=== PATIENT | male | born 1945 | race Caucasian/White ===

== ENCOUNTER → 2018-02-28 | Outpatient (CLI) | payer SELFPAY ==
[2018-02-28 15:36] LABS: BASO # 0.1 (0.0-0.2); EOS # 0.3 (0.0-0.7); EOS % 3.6 % (0-4.0); GRAN # 3.3 (1.4-6.5); GRAN % 48.1 % (42.2-75.2); HEMATOCRIT 46.8 % (42.0-52.0); HEMOGLOBIN 15.3 g/dl (13.5-18.0); LYMPH # 2.5 (1.2-3.4); LYMPH % 36.1 % (20.0-51.0); MEAN CELL VOLUME 96 fl (80.0-100.0); MEAN CORPUSCULAR HEMOGLOBIN 31 pg (27.0-31.0); MEAN CORPUSCULAR HGB CONC 33 g/dl (33.0-37.0); MEAN PLATELET VOLUME 10.4 fl (7.4-10.4); MONO # 0.8 (0.1-0.6); MONO % 10.8 % (1.7-9.3); PLATELET COUNT 205 K/mm3 (130-400); RED BLOOD COUNT 4.89 M/mm3 (4.20-5.60); REDCELL DISTRIBUTION WIDTH-CV 13.2 % (11.5-14.5)
[2018-02-28 15:46] LABS: ALBUMIN 4.5 gm/dL (3.5-5.0); BILIRUBIN,TOTAL 0.6 mg/dL (0.0-1.0); CALCIUM 10.3 mg/dL (8.4-10.2); CHOLESTEROL RISK RATIO 4.7; CREATININE, serum 1.05 mg/dL (0.66-1.25); POTASSIUM 4.1 mmol/L (3.4-5.0); TOTAL PROTEIN 7.2 gm/dL (6.4-8.2)
== END ==
LOC: ZLAB.FHCC 15:15
PROVIDERS: Internal Medicine
DX: I10 Essential (primary) hypertension (principal); J44.9 Chronic obstructive pulmonary disease, unspecified

== ENCOUNTER → 2018-12-27 | Outpatient (CLI) | payer SELFPAY ==
[2018-12-27 12:25] LABS: BASO # 0.1 (0.0-0.2); BASO % 0.9 % (0.0-2.0); EOS # 0.3 (0.0-0.7); EOS % 4.1 % (0-4.0); GRAN # 4.6 (1.4-6.5); GRAN % 60.1 % (42.2-75.2); HEMATOCRIT 42.1 % (42.0-52.0); HEMOGLOBIN 13.8 g/dl (13.5-18.0); LYMPH # 2.2 (1.2-3.4); LYMPH % 29.1 % (20.0-51.0); MEAN CELL VOLUME 97 fl (80.0-100.0); MEAN CORPUSCULAR HEMOGLOBIN 32 pg (27.0-31.0); MEAN CORPUSCULAR HGB CONC 33 g/dl (33.0-37.0); MEAN PLATELET VOLUME 10.3 fl (7.4-10.4); MONO # 0.4 (0.1-0.6); MONO % 5.1 % (1.7-9.3); PLATELET COUNT 235 K/mm3 (130-400); RED BLOOD COUNT 4.35 M/mm3 (4.20-5.60); REDCELL DISTRIBUTION WIDTH-CV 13.3 % (11.5-14.5)
[2018-12-27 12:37] LABS: CHOLESTEROL RISK RATIO 5.9
[2018-12-27 12:40] LABS: ALBUMIN 4.3 gm/dL (3.5-5.0); BILIRUBIN,TOTAL 0.5 mg/dL (0.0-1.0); CALCIUM 10.5 mg/dL (8.4-10.2); CREATININE, serum 0.9 (0.66-1.25); POTASSIUM 4.1 mmol/L (3.4-5.0); TOTAL PROTEIN 6.9 gm/dL (6.4-8.2)
[2018-12-27 13:10] LABS: PSA-TOTAL 1.27 ng/mL (0-4)
== END ==
LOC: ZCOL.LAB 10:48
DX: I10 Essential (primary) hypertension (principal); J44.9 Chronic obstructive pulmonary disease, unspecified
CPT/HCPCS: G0103

== ENCOUNTER → 2019-04-04 | Outpatient (CLI) | payer MEDICARE | LOC: COL.RAD 07:10 | DX: I71.4 Abdominal aortic aneurysm, without rupture (principal) ==

== ENCOUNTER → 2019-05-07 | Outpatient (CLI) | payer MEDICARE | LOC: COL.RAD 07:16 | DX: N28.1 Cyst of kidney, acquired (principal); N28.89 Other specified disorders of kidney and ureter; N40.0 Benign prostatic hyperplasia without lower urinary tract symptoms; I71.9 Aortic aneurysm of unspecified site, without rupture | CPT/HCPCS: Q9967 ==

== ENCOUNTER 2019-07-31 09:16 | Inpatient (IN) | payer MEDICARE ==
[~2019-07-31] VITALS: Ht 177.8 cm; Wt 91.2 kg
[2019-09-11] VITALS (12 sets, daily range): BP systolic 120–148; BP diastolic 65–90; PULSE 78–96; TEMP 97.3–98.4
[2019-09-11] MEDS ORDERED: ASPIRIN 81M81 MG/TA2 PO (09:54)
[2019-09-11] MEDS ORDERED: PRINZIDE 12.5 M1 TA1 PO (09:55)
[2019-09-11] MEDS ORDERED: MEVACOR 20M20 MG/TAB PO (09:55)
[2019-09-11] MEDS ORDERED: VENTOLIN0.09 MG IH (09:56)
[2019-09-11] MEDS ORDERED: TRELEGY ELLIPT1 EACH IH (09:57)
--- NOTE | 2019-09-11 14:25 | NUR ---
Patient to room via bed from surgery. Denies pain at this time. Rosenbaum to dependent drainage draining bloody urine. Lap sites x6 to abd with edges well approximated, no redness/swelling/discharge. JAI drain to right abd, compressed, scant bloody drainage. Patient voices no needs at this time.
--- NOTE | 2019-09-11 15:17 | NUR ---
Sitting up in bed. Rosenbaum continues to drain bloody urine. Patient denies pain or needs at this time.
[2019-09-11 15:37] LABS: HEMOGLOBIN 14.7 g/dl (13.5-18.0); MEAN CELL VOLUME 100 fl (80.0-100.0); MEAN CORPUSCULAR HEMOGLOBIN 31 pg (27.0-31.0); MEAN CORPUSCULAR HGB CONC 31 g/dl (33.0-37.0); MEAN PLATELET VOLUME 9.4 fl (7.4-10.4); PLATELET COUNT 194 K/mm3 (130-400); REDCELL DISTRIBUTION WIDTH-CV 12.8 % (11.5-14.5)
[2019-09-11 15:48] LABS: CALCIUM 9.7 mg/dL (8.4-10.2); CREATININE, serum 1.4 (0.66-1.25); POTASSIUM 4.8 mmol/L (3.4-5.0)
--- NOTE | 2019-09-11 16:00 | NUR ---
Receive call from Dr Mcbride to check on patient. Explain that the patient denies pain and is doing well, that his catheter is draining bloody urine and the PACU nurse said that there were clots noted in the tubing. Dr. Mariscal would like a 500mL bolus of LR to be given and patient is to remain in bed until tomorrow when he is able to see him. Patient has LR on gravity tubing at this time. Increased rate to bolus. Patient sitting up in bed, denies needs.
[2019-09-11 16:10] LABS: BAND 4 % (0-10); LYMPHOCYTE 6 % (20.0-51.0); MYELOCYTE 1 % (0-0); NEUTROPHILS 87 % (42.0-75.2); PLATELET ESTIMATE NORMAL (NORMAL)
--- NOTE | 2019-09-11 18:02 | NUR ---
Sitting up in bed with eyes open watching TV. Denies pain. Rosenbaum continues to drain bloody urine. Patient denies further needs at this time.
--- NOTE | 2019-09-11 21:10 | NUR ---
Pt. sitting up in bed at this time. Pt. is A&OX3, assessment complete. IV to rt. hand patent, IV fluids infusing per orders. Abd. incisions are well approximated. JAI drain noted, with bloody drainage. Pt. denies pain or other needs, call light within reach.
[2019-09-12 03:57] VITALS: BP 122/64; PULSE 94; TEMP 98.2
[2019-09-12 07:04] LABS: BASO % 0.2 % (0.0-2.0); EOS % 0.1 % (0-4.0); GRAN # 10.9 (1.4-6.5); HEMATOCRIT 39.9 % (42.0-52.0); LYMPH # 1.6 (1.2-3.4); LYMPH % 11.2 % (20.0-51.0); MEAN CELL VOLUME 98 fl (80.0-100.0); MEAN CORPUSCULAR HEMOGLOBIN 32 pg (27.0-31.0); MEAN CORPUSCULAR HGB CONC 33 g/dl (33.0-37.0); MEAN PLATELET VOLUME 9.7 fl (7.4-10.4); MONO # 1.4 (0.1-0.6); MONO % 10.1 % (1.7-9.3); PLATELET COUNT 182 K/mm3 (130-400); RED BLOOD COUNT 4.07 M/mm3 (4.20-5.60); REDCELL DISTRIBUTION WIDTH-CV 12.8 % (11.5-14.5)
[2019-09-12 07:09] LABS: CALCIUM 9.2 mg/dL (8.4-10.2); CREATININE, serum 1.57 (0.66-1.25); POTASSIUM 4.6 mmol/L (3.4-5.0)
[2019-09-12 07:30] VITALS: BP 130/54; PULSE 94; TEMP 97.3
--- NOTE | 2019-09-12 09:14 | NUR ---
Patient sitting up in chair. Cornel Ruelas rounded. We ambulated the halls. He did okay, but had alot of dyspnea. He is a smoker-sitting in chair in tripod position. RT rounded & breathing treatment given. O2 back on. Abdomen soft. lap site bandaids intact. Nguyễn drain to compression. Scds. Int. Will monitor
--- NOTE | 2019-09-12 11:16 | NUR ---
Switchboard Wire Worker Helper met with patient to discuss discharge planning. Patient lives alone in [place] and sees Dr. Valdivia for primary care. Patient obtains medications from either [facility] or [facility] pharmacy. Patient does not use any DME and reports independence with ADLS. Per RN, Mita patient has been independent in his room and walking the halls. Patient's Advance Directives are located on the chart. Patient's DPOA-HC is his nephew Sy (ph#[phone]). Patient plans to return home upon discharge and advised he has a ride home. No additional needs at this time.
[2019-09-12 12:00] VITALS: BP 138/72; PULSE 94; TEMP 98
[2019-09-12 15:36] VITALS: BP 136/71; PULSE 92; TEMP 98
--- NOTE | 2019-09-12 18:05 | NUR ---
Patient sitting up in chair. Tolerated dinner. Minimal needs. Refuses tylenol. Voiding adequately. Nguyễn drain with minimal output. lap sites open to air. Will monitor.
--- NOTE | 2019-09-12 20:00 | NUR ---
Report received. 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 A&Ox3. Sitting up in chair watching TV. Denies pain/nausea. Short of breath at rest-purse lip breathing-states is baseline. +flatus. States he has has a small BM so far today. Tolerating diet. Voiding without difficulty. Lap sites x6-edges well approximated-marie set. JAI drain with 15mls of serosanguineous fluid. Has ambulated in hallway but does get quite short of breath with mask on. Denies needs. Call light in reach. Will monitor.
[2019-09-12 20:06] VITALS: BP 151/72; PULSE 97; TEMP 98.2
[2019-09-13 00:43] VITALS: BP 136/63; PULSE 104; TEMP 98.5
[2019-09-13 04:36] VITALS: BP 131/40; PULSE 96; TEMP 98.4
[2019-09-13 07:31] VITALS: BP 153/78; PULSE 102; TEMP 98.6
--- NOTE | 2019-09-13 07:59 | NUR ---
Sitting up in chair watching TV. Denies pain. Patient says that he is not normally on oxygen at home, has a oxygen tank to use as needed but rarely requires it. Removed oxygen at this time and explained that we will recheck his SpO2 levels here in a little bit. Left lung sounds with expiratory wheezes, right lung sounds clear. Lap sites x6 with swiftset in place, edges well approximated, no redness/swelling/drainage from sites. JAI compressed with minimal bloody drainage in bulb. Patient denies needs at this time.
--- NOTE | 2019-09-13 08:15 | NUR ---
Patient SpO2 92% on room air. Patient says that he feels like he is breathing okay at this time. Oxygen remains off. Patient gets into bed at this time to have JAI removed. Explained procedure. Site cleaned with chlorhexadine swab. Stich cut. Tube pulled with all intact. Applied folded 4x4 to site and reinforced with tegaderm. Patient tolerates without difficulty. Patient denies further needs at this time.
--- NOTE | 2019-09-13 09:43 | NUR ---
Reviewed discharge instructions with the patient. Questions answered. Patient verbalizes udnerstanding and signs paperwork. Discharge packet provided to the patient. Patient will arrange for his ride to pick him up at 1300 today. Denies further needs at this time.
--- NOTE | 2019-09-13 12:06 | NUR ---
Sitting up in chair. Denies pain or needs at this time. Will push call light when his ride is here to pick him up so we can assist in getting him out to vehicle.
[2019-09-13 12:09] VITALS: BP 143/68; PULSE 99; TEMP 98.2
--- NOTE | 2019-09-13 12:20 | NUR ---
Patient ride is here to pick him up. Patient assisted out via wheel chair by JOHN Goldberg.
--- NOTE | 2019-09-13 12:30 | NUR ---
First visit from the business improvement manager. No needs right now.
== END 2019-09-13 12:21 | disposition home or self-care (01) | DRG 658 ==
LOC: INPTSU 09-11 08:22 → SURG 09-11 14:00
PROVIDERS: ADMIT Urology
PROC: 8E0W4CZ Robotic Assisted Procedure of Trunk Region, Percutaneous Endoscopic Approach (ICD-10-PCS; 2019-09-11)
PROC: 0TB04ZZ Excision of Right Kidney, Percutaneous Endoscopic Approach (ICD-10-PCS; principal; 2019-09-11 14:00)
DX: C64.1 Malignant neoplasm of right kidney, except renal pelvis (principal); J44.9 Chronic obstructive pulmonary disease, unspecified; I71.9 Aortic aneurysm of unspecified site, without rupture; N40.0 Benign prostatic hyperplasia without lower urinary tract symptoms; I25.10 Atherosclerotic heart disease of native coronary artery without angina pectoris; N18.3 Chronic kidney disease, stage 3 (moderate); I12.9 Hypertensive chronic kidney disease with stage 1 through stage 4 chronic kidney disease, or unspecified chronic kidney disease; E78.5 Hyperlipidemia, unspecified; F17.210 Nicotine dependence, cigarettes, uncomplicated; I25.2 Old myocardial infarction; Z80.0 Family history of malignant neoplasm of digestive organs
CPT/HCPCS: A4314; A9284; J1100; J1170; J1885; J2250; J2405; J2704; J3010; J7030; J7120

== ENCOUNTER → 2020-03-21 | Outpatient (CLI) | payer MEDICARE ==
[~2020-03-21] MED LIST: ASPIRIN 81M81 MG/TA2 PO; MEVACOR 20M20 MG/TAB PO; PRINZIDE 12.5 M1 TA1 PO; TRELEGY ELLIPT1 EACH IH; VENTOLIN0.09 MG IH
== END ==
LOC: COL.RAD 13:43
DX: C64.1 Malignant neoplasm of right kidney, except renal pelvis (principal); N28.1 Cyst of kidney, acquired

== ENCOUNTER → 2020-10-02 | Outpatient (CLI) | payer MEDICARE | LOC: COL.RAD 06:56 | DX: Z01.812 Encounter for preprocedural laboratory examination (principal); C64.1 Malignant neoplasm of right kidney, except renal pelvis; I71.4 Abdominal aortic aneurysm, without rupture; Z98.890 Other specified postprocedural states | CPT/HCPCS: Q9967 ==

== ENCOUNTER → 2021-05-18 | Outpatient (RCR) | payer MEDICARE | END | disposition home or self-care (01) | LOC: COL.CR | DX: I70.212 Atherosclerosis of native arteries of extremities with intermittent claudication, left leg (principal) ==

== ENCOUNTER 2021-06-12 15:33 | Outpatient (RCR) | payer MEDICARE | END 2021-06-15 | disposition home or self-care (01) | LOC: COL.CR | DX: I73.9 Peripheral vascular disease, unspecified (principal) ==

== ENCOUNTER → 2021-10-20 | Outpatient (CLI) | payer MEDICARE | LOC: COL.RAD 07:17 | DX: C64.1 Malignant neoplasm of right kidney, except renal pelvis (principal); N28.1 Cyst of kidney, acquired; Z90.5 Acquired absence of kidney ==

== ENCOUNTER → 2024-02-16 | Outpatient (RCR) | payer MEDICARE ==
[~2024-02-16] MED LIST changes: +ASPIRIN 81M81 MG/TA2; +DOXYCYCLINE 10100 MG PO; +MULTIVITAMIN; +PLAVIX 75MG TAB75 MG; +PREDNISONE20 MG PO
== END | disposition home or self-care (01) ==
LOC: COL.CR
DX: J44.9 Chronic obstructive pulmonary disease, unspecified (principal)